=== PATIENT | male | born 1955 | race Caucasian/White ===

== ENCOUNTER 2016-09-26 11:18 | Emergency (ER) | payer BC, OTHER ==
--- OUTSIDE RECORDS SUMMARY | 2016-09-26 12:29 | XMS REPORT | Continuity of Care Document ---
:1955 Author Organization [facility] ([place]) [place] [address] Phone [phone] Care Team Providers Name Role Phone Ana Villavicencio Primary Care Provider [phone] Source Comments This disclosure is being made pursuant to the Care Everywhere program, applicable federal and state laws, and may not contain all informaitonavailable regarding this patient.[facility] ([place]) Active Allergies and Adverse Reactions No Known Allergies Current Medications Prescription Sig. Disp. Refills Start Date End Date Status loperamide 2 mg capsule Take 2 Caps by 120 Cap 11 10/14/2011 Active mouth before meals and at bedtime. Take 2 caps at onset of diarrhea, then 1 cap after each loose stool. Max 8 caps/day. Indications: Diarrhea CIPRO 500 mg Tab tablet Take 1 Tab by mouth 30 Tab 6 06/22/2012 Active daily. Indications: pouchitis metroNIDAZOLE 500 mg Take 1 Tab by mouth 30 Tab 3 06/22/2012 Active tablet at bedtime. Indications: pouchitis Active Problems Problem Noted Date Pouchitis 10/14/2011 Overview: Antibiotic dependent. First and last pouchoscopy by Dr. Corona Immunizations Name Dates Previously Given Next Due Influenza, PF 04/27/2010 Social History Tobacco Use Types Packs/Day Years Used Date Never Smoker Smokeless Tobacco: Never Used Alcohol Use Drinks/Week oz/Week Comments No Last Filed Vital Signs Vital Sign Reading Time Taken Blood Pressure 128/78 02/23/2013 4:01 PM CDT Pulse 65 02/23/2013 1:49 PM CDT Temperature 37 C (98.6 F) 02/23/2013 1:49 PM CDT Respiratory Rate 16 02/23/2013 4:01 PM CDT Height 1.816 m (5' 11.5") 12/21/2012 10:55 AM CDT Weight 92.715 kg (204 lb 6.4 oz) 12/21/2012 10:55 AM CDT Body Mass Index 28.11 12/21/2012 10:55 AM CDT Oxygen Saturation 99% 02/23/2013 4:01 PM CDT Plan of Care Health Maintenance Due Date Last Done Comments HCV Screening 1955 Hepatitis B Vaccine (1 of 3 - Primary Series) 1955 Tdap Vaccine 1967 Lipid Disorder Screening 1974 MMR Vaccine 1974 Td Vaccine 1974 Prostate Cancer Screening 2006 Influenza Vaccine: Seasonal (#1) 02/11/2016 04/27/2010 Colonoscopy 03/11/2020 03/11/2010 Results from Last 3 Months Not on file
--- NOTE | 2016-09-26 12:33 | ERNOTE ---
ENT HPI Date of Service: 09/26/16 Presenting Symptoms: eye pain, other - eyelid injury Time Seen by Provider: 09/26/16 12:12 Source: patient Exam Limitations: no limitations - Immun/Allergies/Home Medications Immunizations: IMMUNIZATION HX Immunizations Up to Date No History of Influenza Vaccine Yes Hx Pneumococcal Vaccination No Allergies/Adverse Reactions: Allergies Allergy/AdvReac Type Severity Reaction Status Date / Time No Known Allergies Allergy Verified 09/26/16 11:47 Home Medications: HOME MEDICATIONS Ciprofloxacin HCl [Cipro] 500 mg PO ONCE 09/26/16 [Last Taken Unknown] - History of Present Illness Narrative: Presents with c/o laceration to his left lower eyelid. Injury occurred when a machine tool slipped and hit him in his left eye. C/o pain to left eye. Denies any blurry vision. ENT Location: Present: eye (L) Prearrival Treatment: Present: no prearrival treatment Associated Symptoms - ENT: Reports: denies symptoms Review of Systems - Review of Systems Constitutional: Present: no symptoms reported EYE: Present: see HPI ENT: Present: no symptoms reported Respiratory: Present: no symptoms reported Cardiology: Present: no symptoms reported Gastrointestinal/Abdominal: Present: no symptoms reported Genitourinary: Present: no symptoms reported Musculoskeletal: Present: no symptoms reported Skin: Present: no symptoms reported Neurological: Present: no symptoms reported Endocrine: Present: no symptoms reported Hematologic/Lymphatic: Present: no symptoms reported Psych: Present: no symptoms reported All Other Systems: All systems neg except as marked - Patient's Past Medical History Patient History - Medical: Arthritis, Other Patient History - Cardiac/Respiratory: No pertinent hx Patient History - Cancer: No Hx of Cancer Patient History - Surgical Procedures: Colon Resection, Colonoscopy Patient History - Other: None - Family History Mother Family History - Medical: No pertinent hx, Arthritis Family History - Cardiac/Respiratory: Hypertension Family History - Cancer: No pertinent family hx Father Family History - Medical: Family History - Cancer: Colon - Social History Living Situations: spouse Abuse History: No History of abuse Psych History: No pertinent hx Smoking Status: Never smoker Alcohol Use: none Drug Use: none - Immunizations Immunizations Up to Date: No Hx Pneumococcal Vaccination: No History of Influenza Vaccine: Yes Physical Exam - Physical Exam General Appearance: Present: wd/wn, alert, no apparent distress Eye Exam: PERRL: bilateral, EOMI: bilateral, Other: left - Left lower eye lid laceration across medial end of tarsal plate and cananiculus Ears, Nose, Throat: Present: normal ENT inspection Neck: Present: normal inspection, nontender Respiratory: Present: no respiratory distress, normal breath sounds, chest nontender, lungs clear Cardiovascular/Chest: Present: regular rate, rhythm, no murmur Neurological Exam: Present: alert, oriented Skin Exam: Present: normal color, warm/dry ED Progress - Vital Signs Patient's Vital Signs:: I have reviewed the patient's vital signs. Vital Signs: Vital Signs 09/26/16 11:39 Temperature 37.2 C Pulse Rate 68 Respiratory 18 Rate Blood Pressure 137/93 O2 Sat by Pulse 98 Oximetry - Progress/Reassessment Chief Complaint: Eye Injury/Trauma Progress:: Unchanged Plan - Plan Plan: Pt seen in ER by in-house Instructional Paraprofessional, Dr. Domingo; recommends transfer to [place], [place] for more specialized care. Transfer accepted by Dr. Perez, ER department, [facility]. Pt will transfer POV. Departure Clinical Impression: Laceration of eyelid involving lacrimal passages Qualifiers: Encounter type: initial encounter Laterality: left Qualified Code(s): S01.112A - Laceration without foreign body of left eyelid and periocular area, initial encounter - Departure Disposition: [facility] Condition: Good Referrals: Ana Villavicencio MD [Primary Care Provider] -
[2016-09-26 13:19] VITALS: BP 133/73
== END 2016-09-26 13:20 | disposition short-term general hospital (02) ==
LOC: ER 11:18
DX: S01.112A Laceration without foreign body of left eyelid and periocular area, initial encounter (principal); W20.8XXA Other cause of strike by thrown, projected or falling object, initial encounter; Y92.69 Other specified industrial and construction area as the place of occurrence of the external cause; Y99.0 Civilian activity done for income or pay

== ENCOUNTER 2017-06-15 07:47 | Inpatient (IN) | payer BC, OTHER ==
--- NOTE | 2017-06-15 08:35 | ERNOTE ---
Abdominal HPI - General Chief Complaint: Abdominal Pain Time Seen by Provider: 06/15/17 08:24 Source: patient Exam Limitations: no limitations - Immun/Allergies/Home Medications Immunizatons: IMMUNIZATION HX Immunizations Up to Date Yes History of Influenza Vaccine Yes Hx Pneumococcal Vaccination No Allergies/Adverse Reactions: Allergies No Known Allergies Allergy (Verified 06/15/17 08:01) Home Medications: HOME MEDICATIONS Ciprofloxacin HCl [Cipro] 500 mg PO DAILY PRN 09/26/16 [Last Taken Unknown] metroNIDAZOLE [Flagyl] 500 mg PO DAILY PRN 06/15/17 [Last Taken Unknown] - History of Present Illness Narrative: Patient has a history of ulcerative colitis, had a total colectomy about five years ago. He has chronic diarrhea but has not had any other problems for at lease two years. two days ago he started to have intermittent abdominal pain and worsened diarrhea, pain mainly with activity and being upright Date (Duration): 06/13/17 Timing: intermittent Quality: moderate Activities at Onset: activity Modifying Factors - (Improves): Present: rest, lying down Modifying Factors - (Worsens): Present: movement Associated Symptoms: Absent: headache, back pain, chest pain, neck pain, diaphoresis, diarrhea-gross blood, fever/chills, heartburn, nausea, shortness of breath Prior Abdominal Problems: Present: similar symptoms - prior to surgery Prior Treatment: Absent: recently seen, currently on antibiotics Review of Systems - Review of Systems Constitutional: Absent: recent illness, fever ENT: Absent: nose congestion, sore throat Respiratory: Absent: shortness of breath Cardiology: Absent: chest pain Gastrointestinal/Abdominal: Present: See HPI Genitourinary: Present: no symptoms reported Musculoskeletal: Present: no symptoms reported Skin: Present: no symptoms reported Neurological: Present: no symptoms reported - Patient's Past Medical History Patient History - Medical: Arthritis, Other - ulcerative colitis Patient History - Cardiac/Respiratory: No pertinent hx Patient History - Cancer: No Hx of Cancer Patient History - Surgical Procedures: Colon Resection, Colonoscopy Patient History - Other: None - Family History Mother Family History - Medical: No pertinent hx, Arthritis Family History - Cardiac/Respiratory: Hypertension Family History - Cancer: No pertinent family hx Father Family History - Medical: Family History - Cancer: Colon - Social History Living Situations: home Abuse History: No History of abuse Psych History: No pertinent hx Smoking Status: Never smoker Alcohol Use: none Drug Use: none - Immunizations Immunizations Up to Date: Yes Hx Pneumococcal Vaccination: No History of Influenza Vaccine: Yes Physical Exam - Physical Exam General Appearance: Present: wd/wn, alert, severe distress Respiratory: Present: no respiratory distress, normal breath sounds, no accessory muscle use, lungs clear Cardiovascular/Chest: Present: regular rate, rhythm, no murmur Gastrointestinal/Abdominal: Present: nondistended, soft, tenderness - lower abdomen bilateral, other - decreased bowel sonds. Absent: guarding, rebound Extremity Exam: Present: no edema Neurological Exam: Present: alert, oriented, normal mood/affect Skin Exam: Present: normal color, warm/dry ED Progress - Results and Orders Patient's Lab Results:: I have reviewed the patient's lab results. - Vital Signs Patient's Vital Signs:: I have reviewed the patient's vital signs. Vital Signs: Vital Signs 06/15/17 07:54 Temperature 36.4 C L Pulse Rate 82 Respiratory 16 Rate Blood Pressure 111/70 O2 Sat by Pulse 99 Oximetry - X-Ray X-Ray #1 X-Ray: abdomen - abnormal, but non specific bowel gas pattern Interpretation: Reviewed by me - CT/Ultrasound CT/Ultrasound Narrative: CT abdomen/pelvis: possible pouchitis and partial small bowel obstruction (see report) - Progress/Reassessment Chief Complaint: Abdominal Pain Progress Note-Subjective: 06/15/17 09:19 discussed results with patient and need for CT for more detailed information patient denies need for pain meds 06/15/17 10:10 tolerating po contrast, denies any pain 06/15/17 12:[address] Nesbitt, unable to review CT at this time but doesn't see contraindication for admission here 06/15/17 12:[address] Fuentes,okay to admit, start cipro and flagyl Departure Clinical Impression: Pouchitis - Departure Disposition: [facility] Condition: Stable Referrals: Ana Villavicencio MD [Primary Care Provider] -
[2017-06-15 08:45] LABS: Hematocrit 49.6 % (42.0-52.0); Hemoglobin 16.9 gm/dL (13.5-18.0); Mean Corpuscular Hemoglobin 30.3 pg (27-31); Mean Corpuscular Hgb Conc 34.1 g/dl (32-36); Mean Platelet Volume 9.3 fl (6.0-9.5); Neutrophil # 8.8 K/mm3 (1.3-6.0); Neutrophil % 77.5 % (42-75.0); Platelet Count 284 K/mm3 (150-450); Red Blood Count 5.57 M/mm3 (4.7-6.0); Red Cell Distribution Width 13.2 % (11.5-14.0); White Blood Count 11.4 K/mm3 (4.0-10.5)
[2017-06-15 08:57] LABS: Albumin * 4.1 gm/dl (3.4-5.0); BUN/Creatinine Ratio 13.4 (9.0-21.6); Bilirubin, Total 0.8 mg/dL (0.0-1.1); Ca. Corrected For Albumin 8.7 mg/dL (8.4-10.2); Calcium * 9.1 mg/dL (7.9-10.9); Total Protein 8.3 gm/dL (6.2-8.2)
[2017-06-15 09:00] LABS: Anion Gap 12.3 mmol/L (6.8-13.8); Carbon Dioxide 27.7 mmol/L (24-32.6)
[2017-06-15 09:13] LABS: Urine Bilirubin 1 mg/dl (NEGATIVE); Urine Blood 25 /ul (NEGATIVE); Urine Ketone 5 mg/dL (NEGATIVE); Urine Nitrite Negative (NEGATIVE); Urine Protein 30 mg/dL (NEGATIVE); Urine Specific Gravity >=1.030 SP.GR. (1.005-1.030); Urine Urobilinogen Normal (NORMAL)
[2017-06-15] MEDS ORDERED: DIATRIZOATE MEGLUMINE, SODIUM 30 ML BTL PO ONE (09:19)
[2017-06-15 09:20] LABS: Urine Appearance Slightly Cloudy; Urine Bacteria TRACE; Urine Color Dark Yellow; Urine WBC None Seen /hpf (0-5)
[2017-06-15] MEDS ORDERED: DIATRIZOATE MEGLUMINE, SODIUM 30 ML BTL ONE (09:26)
[2017-06-15 10:12] LABS: White Blood Count Few
[2017-06-15 10:13] LABS: Bacteria Few; Band 1 % (0-2); Eosinophil 1 % (0-3); Lymphocyte 5 % (20-51); Monocyte 8 % (2-9); Neutrophil 85 % (42-75); Yeast Few
[2017-06-15] MEDS ORDERED: ACETAMINOPHEN 500 MG TABLET PO PRN (13:12)
[2017-06-15] MEDS ORDERED: PROMETHAZINE HCL 5 MG in DEXTROSE 5 % IN WATER 50 ML IV PRN ×2 (13:12)
[2017-06-15] MEDS ORDERED: HYDROmorphone HCL 2 MG TABLET PO PRN (13:12)
[2017-06-15] MEDS ORDERED: HYDROcodone/ACETAMINOPHEN 1 EACH TABLET PO PRN (13:12)
[2017-06-15] MEDS ORDERED: FLU VACC QS2017-18(6MOS UP)/PF 60 MCG/0.5 ML SYRINGE IM ONE (13:46)
[2017-06-15] MEDS: metroNIDAZOLE/SODIUM CHLORIDE 500 MG/100 ML BAG IV SCH ×2 (14:12→20:20)
[2017-06-15] MEDS: CIPROFLOXACIN IN 5 % DEXTROSE 400 MG/200 ML BAG IV SCH (14:12)
--- NOTE | 2017-06-15 15:05 | HP ---
Chief Complaint - Chief Complaint Date of Service: 06/15/17 Time of Service: 15:02 Chief Complaint: abdominal pain History of Present Illness: Clifford Sauer, is a 61 white male, patient of Dr. Villavicencio, with previous medical history of ulcerative colitis, Pouchitis, osteoarthritis who was admitted on 06/15/2017 because of abdominal pain. 2 days prior to admission the patient started having diarrhea, large volume associated with abdominal pain , mostly right lower quadrant, colicky, 5-8/10, waxing and waning not associated with fever/ chills/ nausea/vomiting. The patient says that he has chronic diarrhea, but of small volume, ever since he had his colectomy for ulcerative colitis. In 2014 he did have a history of pouchitis treated conservatively with IV antibiotics. His CTS showed that he has again pouchitis and he had a positive stool for occult blood. . He is then admitted for further management. - Patient's Past Medical History Patient History - Medical: Arthritis, Other - ulcerative colitis, Pouchitis Patient History - Cardiac/Respiratory: No pertinent hx Patient History - Cancer: No Hx of Cancer Patient History - Surgical Procedures: Colon Resection, Colonoscopy Patient History - Other: None - Family History Mother Family History - Medical: No pertinent hx, Arthritis Family History - Cardiac/Respiratory: Hypertension Family History - Cancer: No pertinent family hx Father Family History - Medical: Family History - Cardiac/Respiratory: History Unknown Family History - Cancer: Colon - Social History Living Situations: home Abuse History: No History of abuse Psych History: No pertinent hx Smoking Status: Never smoker Have you smoked in the past 12 months: No Do you dip or chew tobacco: No Patient requests Smoking Cessation Consult: No Initiate information on Smoking Cessation: No Alcohol Use: none Drug Use: none - Immunizations Immunizations Up to Date: Yes Hx Pneumococcal Vaccination: No History of Influenza Vaccine: Yes Review Of Systems (GEN) - Review of Systems Generalized/Overall Review: Absent: Chills, Fever Respiratory: Absent: Cough, Shortness of Breath, Orthopnea Cardiac: Absent: Chest Pain, Edema, Palpitations Abdominal: Present: Abdominal Pain, Diarrhea. Absent: Nausea, Vomiting Genitourinary: Absent: Urgency, Frequency Immunizations: IMMUNIZATION HX Immunizations Up to Date Yes History of Influenza Vaccine Yes Hx Pneumococcal Vaccination No Allergies/Adverse Reactions: Allergies Allergy/AdvReac Type Severity Reaction Status Date / Time No Known Allergies Allergy Verified 06/15/17 13:28 Home Medications: HOME MEDICATIONS Ciprofloxacin HCl [Cipro] 500 mg PO DAILY PRN 09/26/16 [Last Taken 06/14/17 09: 00] metroNIDAZOLE [Flagyl] 500 mg PO DAILY PRN 06/15/17 [Last Taken 06/14/17 09:00] Exam - Exam Vital Signs: Vital Signs - Last Taken Temp 36.6 C 06/15/17 13:13 Pulse 84 06/15/17 13:13 Resp 16 06/15/17 13:13 BP 120/80 06/15/17 13:13 Pulse Ox 96 06/15/17 13:13 Constitutional: Present: Alert, Oriented x3, Cooperative ENT Exam: Present: hearing grossly normal Eye Exam: bilateral eye: normal inspection, PERRL, EOMI Neck: Present: supple Back Exam: Present: no CVA tenderness Respiratory: Present: normal breath sounds, No rales, No wheezing Cardiovascular/Chest: Present: regular rate, rhythm, no JVD, no murmur Abdomen: Present: nondistended, tender, firm, hypoactive Extremity: Present: no pedal edema, no calf tenderness Diagnostic Studies: Laboratory Results WBC 11.4 K/mm3 (4.0-10.5) H 06/15/17 08:39 RBC 5.57 M/mm3 (4.7-6.0) 06/15/17 08:39 Hgb 16.9 gm/dL (13.5-18.0) 06/15/17 08:39 Hct 49.6 % (42.0-52.0) 06/15/17 08:39 MCV 89.0 fl (78-100) 06/15/17 08:39 MCH 30.3 pg (27-31) 06/15/17 08:39 MCHC 34.1 g/dl (32-36) 06/15/17 08:39 RDW 13.2 % (11.5-14.0) 06/15/17 08:39 Plt Count 284 K/mm3 (150-450) 06/15/17 08:39 MPV 9.3 fl (6.0-9.5) 06/15/17 08:39 Immature Gran % (Auto) 0.40 % (0.001-0.429) 06/15/17 08:39 Immature Gran # (Auto) 0.04 K/mm3 (0.000-0.0310) H 06/15/17 08:39 Neutrophils % 77.5 % (42-75.0) H 06/15/17 08:39 Lymphocytes % 11.0 % (20-51) L 06/15/17 08:39 Monocytes % 8.1 % (0.0-9) 06/15/17 08:39 Eosinophils % 2.6 % (0.0-3.0) 06/15/17 08:39 Basophils % 0.4 % (0.0-1.0) 06/15/17 08:39 Nucleated RBC % 0.0 k/mm3 (0-1) 06/15/17 08:39 Neutrophils # 8.8 K/mm3 (1.3-6.0) H 06/15/17 08:39 Lymphocytes # 1.3 k/mm3 (1.5-3.5) L 06/15/17 08:39 Monocytes # 0.9 k/mm3 (0.0-1.0) 06/15/17 08:39 Eosinophils # 0.3 k/mm3 (0.0-0.7) 06/15/17 08:39 Absolute Basophils 0.0 k/mm3 (0.0-0.1) 06/15/17 08:39 Sodium 139 mmol/L (132-142) 06/15/17 08:39 Plasma Sodium 139 mmol/L (130-142) 06/15/17 08:39 Potassium 4.0 mmol/L (3.4-4.6) 06/15/17 08:39 Chloride 103 mmol/L (97-106) 06/15/17 08:39 Carbon Dioxide 27.7 mmol/L (24-32.6) 06/15/17 08:39 Anion Gap 12.3 mmol/L (6.8-13.8) 06/15/17 08:39 BUN 19 mg/dL (6-23) 06/15/17 08:39 Creatinine 1.42 mg/dL (0.4-1.4) H 06/15/17 08:39 Est GFR (Non-Af Amer) 54 mL/min (60-130) L 06/15/17 08:39 BUN/Creatinine Ratio 13.4 (9.0-21.6) 06/15/17 08:39 Random Glucose 107 mg/dL (70-110) 06/15/17 08:39 Calcium 9.1 mg/dL (7.9-10.9) 06/15/17 08:39 Calcium Adj for Albumin 8.7 mg/dL (8.4-10.2) 06/15/17 08:39 Total Bilirubin 0.8 mg/dL (0.0-1.1) 06/15/17 08:39 AST 14 U/L (0-48) 06/15/17 08:39 ALT 17 U/L (19-67) L 06/15/17 08:39 Alkaline Phosphatase 125 U/L (50-170) 06/15/17 08:39 Total Protein 8.3 gm/dL (6.2-8.2) H 06/15/17 08:39 Albumin 4.1 gm/dl (3.4-5.0) 06/15/17 08:39 Amylase 56 U/L (25-115) 06/15/17 08:39 Lipase 113 U/L (73-393) 06/15/17 08:39 Urine Color Dark yellow 06/15/17 09:07 Urine Appearance Slightly cloudy 06/15/17 09:07 Urine pH 6.0 pH (5.0-7.0) 06/15/17 09:07 Ur Specific [place] >=1.030 SP.GR. (1.005-1.030) 06/15/17 09:07 Urine Protein 30 mg/dL (NEGATIVE) H 06/15/17 09:07 Urine Glucose (UA) Negative mg/dL (NEGATIVE) 06/15/17 09:07 Urine Ketones 5 mg/dL (NEGATIVE) 06/15/17 09:07 Urine Blood 25 /ul (NEGATIVE) H 06/15/17 09:07 Urine Nitrate Negative (NEGATIVE) 06/15/17 09:07 Urine Bilirubin 1 mg/dl (NEGATIVE) H 06/15/17 09:07 Urine Ictotest Negative (NEGATIVE) 06/15/17 09:07 Prot Sulfosalicylic Acd Negative mg/dL (0) 06/15/17 09:07 Urine Urobilinogen Normal EU/dl (NORMAL) 06/15/17 09:07 Ur Leukocyte Esterase Negative /ul (NEGATIVE) 06/15/17 09:07 Urine RBC 5-10 /hpf (0-5) H 06/15/17 09:07 Urine WBC None seen /hpf (0-5) 06/15/17 09:07 Ur Epithelial Cells None seen /hpf (0-5) 06/15/17 09:07 Urine Bacteria Trace (NONE) 06/15/17 09:07 Urine Culture Comments No culture indicated 06/15/17 09:07 Fluid Lymphocytes 5 % (20-51) L 06/15/17 08:45 Stool Occult Blood Positive H 06/15/17 08:45 Stool White Cell Res 1 1 % (0-2) 06/15/17 08:45 Stool White Cell Res 4 Few 06/15/17 08:45 Stool Neutrophil # 85 % (42-75) H 06/15/17 08:45 Stool Leukocytes, Qual Few H 06/15/17 08:45 Stool Monocyte # 8 % (2-9) 06/15/17 08:45 Stool Eosinophil # 1 % (0-3) 06/15/17 08:45 Yeast (Wet Prep) Few 06/15/17 08:45 Assessment/Plan - Assessment/Plan (1) Pouchitis Assessment: continue with NPO, IV Cipro/flagyl. Consider Probiotic. surgical consult with Dr. Nesbitt. Problem: Acute (2) Dehydration Assessment: continue with IVF Problem: Acute (3) Ulcerative colitis Assessment: s/p colectomy Problem: Chronic Qualifiers: Ulcerative colitis location: ulcerative pancolitis
[2017-06-15] MEDS: DEXTROSE 5%-0.5 NORMAL SALINE 1,000 ML IV PRN (17:17)
[2017-06-15] MEDS: LACTOBACILLUS ACIDOPHILUS 100 CAP BTL PO SCH ×2 (17:18→20:22)
[2017-06-16] MEDS: CIPROFLOXACIN IN 5 % DEXTROSE 400 MG/200 ML BAG IV SCH ×2 (01:53→13:01)
[2017-06-16] MEDS: metroNIDAZOLE/SODIUM CHLORIDE 500 MG/100 ML BAG IV SCH ×3 (04:52→20:40)
[2017-06-16] MEDS: DEXTROSE 5%-0.5 NORMAL SALINE 1,000 ML IV PRN ×2 (06:46→18:46)
[2017-06-16] MEDS: LACTOBACILLUS ACIDOPHILUS 100 CAP BTL PO SCH ×2 (08:14→20:40)
--- NOTE | 2017-06-16 08:33 | PN ---
Subjective - Date and Time Seen Date: 06/16/17 Time: 08:28 Subjective Narrative: He says he is hungry. Still with large diarrhea and abdominal pain . Objective - Review of Systems Generalized/Overall Review: Denies: Weakness, Chills, Fever Respiratory: Denies: Cough, Shortness of Breath Cardiac: Denies: Chest Pain, Edema, Palpitations Abdominal: Denies: Nausea, Vomiting Genitourinary Symptoms: Denies: Urgency, Frequency - Vitals Vitals: Last Vital Signs Temp 36.4 C L 06/16/17 08:04 Pulse 65 06/16/17 08:04 Resp 14 06/16/17 08:04 BP 124/76 06/16/17 08:04 Pulse Ox 98 06/16/17 08:04 - Abnormal Lab Findings Abnormal Lab Findings: Abnormal Lab Results 06/15/17 06/15/17 Range/Units 15:45 15:45 ESR 19 H (0-10) mm/hr C-Reactive Prot, Quant 3.2 H (0.0-0.9) mg/dL - Exam Constitutional: Present: Alert, Oriented x3, Cooperative ENT Exam: Present: hearing grossly normal Neck: Present: supple Cardiovascular/Chest: Present: regular rate, rhythm, no JVD, no murmur Abdomen: Present: nondistended, tender, hypoactive Extremity: Present: no pedal edema, no calf tenderness Assessment/Plan - Problems/Diagnosis (1) Pouchitis Problem: Acute Narrative: will get consult from Dr. Nesbitt. Will continue with IV antibiotics. Will likely start clear liquids if OK with Dr. Nesbitt. (2) Dehydration Problem: Acute Narrative: continue IVF. (3) Ulcerative colitis Problem: Chronic Qualifiers: Ulcerative colitis location: ulcerative pancolitis
[2017-06-16] MEDS: ENOXAPARIN SODIUM 40 MG/0.4 ML SYRG SC SCH (13:01)
[2017-06-16] MEDS: ONDANSETRON HCL/PF 2 MG/ML VIAL IV PRN (19:29)
--- NOTE | 2017-06-16 20:31 | CONS ---
- Reason for consultation (1) Pouchitis Date of Service: 06/16/17 HPI - General Date of Service: 06/16/17 Source: patient, family, RN/MD, RN notes reviewed, old records Exam Limitations: no limitations - History of Present Illness Timing/Duration: other - abrupt onset mid day 06/13/17 Modifying Factors - (Worsens): Reports: movement Modifying Factors - (Improves): Reports: immobilization Associated Symptoms: other - diarrhea, then nausea NO fever/chills Allergies/Adverse Reactions: Allergies No Known Allergies Allergy (Verified 06/15/17 13:28) Home Medications: Home Medications Medication Instructions Recorded Last Taken Ciprofloxacin HCl [Cipro] 500 mg PO DAILY PRN 09/26/16 06/14/17 09:00 metroNIDAZOLE [Flagyl] 500 mg PO DAILY PRN 06/15/17 06/14/17 09:00 - Patient's Past Medical History Patient History - Medical: Arthritis, Other - ulcerative colitis, Pouchitis Patient History - Cardiac/Respiratory: No pertinent hx Patient History - Cancer: No Hx of Cancer Patient History - Surgical Procedures: Colon Resection - total abdominal colectomy with creation of ileal pouch and pouch/rectal anastamosis, Colonoscopy Patient History - Other: None - Family History Mother Family History - Medical: No pertinent hx, Arthritis Family History - Cardiac/Respiratory: Hypertension Family History - Cancer: No pertinent family hx Father Family History - Medical: Family History - Cardiac/Respiratory: History Unknown Family History - Cancer: Colon - Social History Living Situations: home Abuse History: No History of abuse Psych History: No pertinent hx Smoking Status: Never smoker Have you smoked in the past 12 months: No Do you dip or chew tobacco: No Patient requests Smoking Cessation Consult: No Initiate information on Smoking Cessation: No Alcohol Use: none Drug Use: none - Immunizations Immunizations Up to Date: Yes Hx Pneumococcal Vaccination: No History of Influenza Vaccine: Yes Procedures CLOSED ENDOSCOPIC BIOPSY OF LARGE INTESTINE (12/27/08) Medications - Medications Current Medications: Current Medications Enoxaparin Sodium (Lovenox) 40 mg SC Q24H SARATH Stop: 07/16/17 12:46 Last Admin: 06/16/17 13:01 Dose: 40 mg Ciprofloxacin/Dextrose (Cipro) 400 mg in 200 mls @ 200 mls/hr IV Q12H SARATH PRN Reason: Protocol Stop: 07/15/17 13:16 Last Admin: 06/16/17 13:01 Dose: 200 mls/hr Metronidazole (Flagyl) 500 mg in 100 mls @ 100 mls/hr IV Q8H SARATH PRN Reason: Protocol Stop: 07/15/17 13:16 Last Admin: 06/16/17 14:17 Dose: 100 mls/hr Promethazine HCl 5 mg/ (Dextrose/Water) 50.2 mls @ 200 mls/hr IV Q4H PRN PRN Reason: Nausea Stop: 07/15/17 13:13 Last Admin: 06/15/17 15:47 Dose: 200 mls/hr Dextrose/Sodium Chloride (Dextrose 5%-0.45%Ns) 1,000 mls @ 100 mls/hr IV .Q10H PRN PRN Reason: HYDRATION Stop: 07/15/17 15:38 Last Admin: 06/16/17 18:46 Dose: 100 mls/hr Lactobacillus Acidophilus (Bacid) 1 cap PO BID SARATH Stop: 07/15/17 15:31 Last Admin: 06/16/17 08:14 Dose: 1 cap Ondansetron HCl (Zofran) 4 mg IV Q6H PRN PRN Reason: Nausea And Vomiting Stop: 07/16/17 19:08 Last Admin: 06/16/17 19:29 Dose: 4 mg Review of Systems - Review of Systems Generalized/Overall Review: Present: Malaise. Absent: Chills, Fever, Weight loss EENTM: Present: No Symptoms Reported Respiratory: Present: No Symptoms Reported Cardiac: Present: No Symptoms Reported Abdominal: Present: Other - crampy migratory pain, distention, diarrhea. Absent : Bright blood from rectum Genitourinary: Present: No Symptoms Reported Musculoskeletal: Present: No Symptoms Reported Neurological: Present: No Symptoms Reported Skin: Present: No Symptoms Reported Physical Examination - Exam Vital Signs: Vital Signs - Last Taken Temp 36.4 C L 06/16/17 19:00 Pulse 73 06/16/17 19:00 Resp 18 06/16/17 19:00 BP 144/97 06/16/17 19:00 Pulse Ox 100 06/16/17 19:00 O2 Oxygen Delivery Method Room Air Constitutional: Present: Alert, Oriented x3, Cooperative, Well developed, Well nourished, No distress ENT Exam: Present: normal ENT inspection Eye Exam: bilateral eye: normal inspection Neck: Present: full range of motion, normal inspection Abdomen: Present: other - Slightly proturberant, tympanitic, soft, no percussion or rebound tenderness, no guarding /Rectal: Present: Other - exam will be done with endoscopy Extremity: Present: normal range of motion, normal inspection, no pedal edema Skin Exam: Present: normal color 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 Currently C Diff was negative. Last endoscopic exam was 2012 with no formal GI f/u since then. Does not appear to have SBO on CT, could assess pouch problems with endoscopy RECOMMEND: Add Zofran for nausea and continue clear liquids until 6AM. GI endoscopy to biosy pouch tomorrow. Stool cultures for pathogens. Will discuss with Dr Fuentes, and may wish to re- establish with [facility] for ongoing f/u and management suggestions. Problem: Acute
[2017-06-17] MEDS: CIPROFLOXACIN IN 5 % DEXTROSE 400 MG/200 ML BAG IV SCH ×2 (00:31→14:33)
[2017-06-17] MEDS: metroNIDAZOLE/SODIUM CHLORIDE 500 MG/100 ML BAG IV SCH ×3 (04:45→23:36)
[2017-06-17] MEDS: DEXTROSE 5%-0.5 NORMAL SALINE 1,000 ML IV PRN (07:17)
[2017-06-17 07:21] LABS: Hematocrit 45.6 % (42.0-52.0); Hemoglobin 15.6 gm/dL (13.5-18.0); Mean Cell Volume 88.4 fl (78-100); Mean Corpuscular Hemoglobin 30.2 pg (27-31); Mean Corpuscular Hgb Conc 34.2 g/dl (32-36); Mean Platelet Volume 9.3 fl (6.0-9.5); Neutrophil # 6.2 K/mm3 (1.3-6.0); Neutrophil % 72.2 % (42-75.0); Platelet Count 240 K/mm3 (150-450); Red Blood Count 5.16 M/mm3 (4.7-6.0); Red Cell Distribution Width 12.9 % (11.5-14.0); White Blood Count 8.5 K/mm3 (4.0-10.5)
[2017-06-17 07:30] LABS: Anion Gap 10.6 mmol/L (6.8-13.8); BUN/Creatinine Ratio 12.2 (9.0-21.6); Calcium * 8.6 mg/dL (7.9-10.9); Carbon Dioxide 27.5 mmol/L (24-32.6); Estimated Creat Clear 63.9; Potassium 4.1 mmol/L (3.4-4.6)
--- NOTE | 2017-06-17 08:11 | PN ---
Subjective - Date and Time Seen Date: 06/17/17 Time: 08:08 Subjective Narrative: Patient says that clinically he is feeling better- less diarrhea, less abdominal pain. Objective - Review of Systems Generalized/Overall Review: Denies: Chills, Fever Respiratory: Denies: Cough, Shortness of Breath Cardiac: Denies: Chest Pain, Palpitations Abdominal: Reports: Abdominal Pain, Diarrhea. Denies: Nausea, Vomiting Genitourinary Symptoms: Denies: Urgency, Frequency - Vitals Vitals: Last Vital Signs Temp 36.4 C L 06/17/17 07:00 Pulse 64 06/17/17 07:00 Resp 16 06/17/17 07:00 BP 134/83 06/17/17 07:00 Pulse Ox 94 06/17/17 07:00 - Abnormal Lab Findings Abnormal Lab Findings: Abnormal Lab Results 06/17/17 06/17/17 Range/Units 07:15 07:15 Lymphocytes % 16.3 L (20-51) % Neutrophils # 6.2 H (1.3-6.0) K/mm3 Lymphocytes # 1.4 L (1.5-3.5) k/mm3 Est GFR (Non-Af Amer) 59 L (60-130) mL/min Random Glucose 121 H (70-110) mg/dL - Exam Constitutional: Present: Alert, Oriented x3, Cooperative ENT Exam: Present: hearing grossly normal Neck: Present: supple Respiratory: Present: normal breath sounds, No rales, No wheezing Cardiovascular/Chest: Present: regular rate, rhythm, no JVD, no murmur Abdomen: Present: tender, firm, hypoactive Extremity: Present: no pedal edema, no calf tenderness Assessment/Plan - Problems/Diagnosis (1) Pouchitis Problem: Acute Narrative: for endoscopy today with Dr. Nesbitt. continue with IV anrtibiotics. (2) Dehydration Problem: Resolved (3) Ulcerative colitis Problem: Chronic Qualifiers: Ulcerative colitis location: ulcerative pancolitis Narrative: s/p colectomy
[2017-06-17] MEDS ORDERED: DEXTROSE 5%-0.5 NORMAL SALINE 1,000 ML IV ONE (10:30)
[2017-06-17] MEDS ORDERED: RINGER'S SOLUTION,LACTATED 1,000 ML IV PRN (11:14)
[2017-06-17] MEDS: LACTOBACILLUS ACIDOPHILUS 100 CAP BTL PO SCH ×2 (11:29→23:36)
[2017-06-17] MEDS: ENOXAPARIN SODIUM 40 MG/0.4 ML SYRG SC SCH (13:02)
--- NOTE | 2017-06-17 14:50 | OR ---
Operative Report - Dictated Report Narrative: OPERATIVE REPORT DATE OF OPERATION: 06/17/2017 PREOPERATIVE DIAGNOSIS: Pouchitis POSTOPERATIVE DIAGNOSIS: Pouchitis (pathology pending) OPERATION: Endoscopic exam of distal ileal rectal J pouch SURGEON: Ree Nesbitt MD ANESTHESIA: DILMA Earl CRNA INDICATIONS FOR PROCEDURE: The patient is a 61-year-old male who has had a total abdominal colectomy with creation of a J-pouch for ulcerative colitis. He was admitted with abdominal pain and diarrhea with presumptive diagnosis of pouchitis. FINDINGS: Findings compatible with pouchitis. No mechanical obstruction observed to 50 cm with normal small intestine proximal to the pouch NARRATIVE OF PROCEDURE: The patient was identified preoperatively and prior to the administration of anesthetic a multidisciplinary timeout was observed. With the patient in the left lateral position and after the administration of mild intravenous sedation the perineum was inspected. There was no evidence of pilonidal disease or skin breakdown. The external appearance of the anus was normal. Sphincter tone was good. The flexible fiberoptic colonoscope was inserted through the anal canal into the J pouch. There was marked inflammation and friability noted. The scope was then withdrawn and readvanced through the anal canal and photographs obtained. A biopsy of the immediate transition zone was obtained. The scope was then advanced into the pouch. The owl eyes anatomy was observed. The overall anatomy of the pouch was inspected and appeared normal but with inflamed mucosa. The pouch was then biopsied. The sites were seen to be hemostatic. The scope was then advanced into the small bowel for a length of 50 cm. There was no evidence of angulation or obstruction and the villous architecture of the small bowel appeared normal. The scope was then withdrawn into the pouch with confirmation of previous findings. The pouch was empty of insufflated air. The scope was then withdrawn from the patient and the procedure terminated. The patient tolerated the anesthetic and procedure well without complication. He was transferred back to the floor awake and in stable condition. Reviewed and electronically signed
[2017-06-18] MEDS: ONDANSETRON HCL/PF 2 MG/ML VIAL IV PRN (02:19)
[2017-06-18] MEDS: CIPROFLOXACIN IN 5 % DEXTROSE 400 MG/200 ML BAG IV SCH ×2 (02:25→15:00)
[2017-06-18] MEDS: metroNIDAZOLE/SODIUM CHLORIDE 500 MG/100 ML BAG IV SCH ×3 (06:44→20:35)
--- NOTE | 2017-06-18 08:36 | PN ---
Subjective - Date and Time Seen Date: 06/18/17 Time: 08:34 Subjective Narrative: Patient is feeling better. He feels his diarrhea is getting back to his baseline. Objective - Review of Systems Generalized/Overall Review: Denies: Weakness, Chills, Fever Respiratory: Denies: Cough, Shortness of Breath Cardiac: Denies: Chest Pain, Palpitations Abdominal: Reports: Abdominal Pain - improved. Denies: Nausea, Vomiting Genitourinary Symptoms: Denies: Urgency, Frequency Musculoskeletal Complaints: Denies: Joint Pain - Vitals Vitals: Last Vital Signs Temp 36.4 C L 06/18/17 07:17 Pulse 64 06/18/17 07:17 Resp 18 06/18/17 07:17 BP 145/93 06/18/17 07:17 Pulse Ox 97 06/18/17 07:17 Assessment/Plan - Problems/Diagnosis (1) Pouchitis Problem: Acute Narrative: WBC is back to normal. will advance diet. continue with IV antibiotics today. possible discharge tomorrow. (2) Ulcerative colitis Problem: Chronic Qualifiers: Ulcerative colitis location: ulcerative pancolitis Narrative: s/p colectomy
[2017-06-18] MEDS: LACTOBACILLUS ACIDOPHILUS 100 CAP BTL PO SCH ×2 (09:19→20:35)
[2017-06-18] MEDS: ENOXAPARIN SODIUM 40 MG/0.4 ML SYRG SC SCH (15:00)
[2017-06-19] MEDS: CIPROFLOXACIN IN 5 % DEXTROSE 400 MG/200 ML BAG IV SCH (00:56)
[2017-06-19] MEDS: ONDANSETRON HCL/PF 2 MG/ML VIAL IV PRN (02:04)
[2017-06-19] MEDS: metroNIDAZOLE/SODIUM CHLORIDE 500 MG/100 ML BAG IV SCH (05:09)
[2017-06-19 06:26] VITALS: BP 130/96
--- NOTE | 2017-06-19 08:16 | DS ---
(1) Pouchitis Problem: Acute (2) Ulcerative colitis Problem: Chronic Qualifiers: Ulcerative colitis location: ulcerative pancolitis Description of Stay: Clifford Sauer, is a 61 white male, patient of Dr. Villavicencio, with previous medical history of ulcerative colitis, Pouchitis, osteoarthritis who was admitted on 06/15/2017 because of abdominal pain. 2 days prior to admission the patient started having diarrhea, large volume associated with abdominal pain , mostly right lower quadrant, colicky, 5-8/10, waxing and waning not associated with fever/ chills/ nausea/vomiting. The patient says that he has chronic diarrhea, but of small volume, ever since he had his colectomy for ulcerative colitis. In 2014 he did have a history of pouchitis treated conservatively with IV antibiotics. His CTS showed that he has again pouchitis and he had a positive stool for occult blood. . He was then admitted and started on IV antibiotics. He underwent an endoscopy and biopsy with Dr. Nesbitt. His pathology report showed severe inflammation but no dysplasia. His diarrhea and abdominal pain resolved. Will discahrge him on Cipro 400 mg PO BID x 10 more days, Flagyl 500 mg PO QD x 10 days and then back to his usual Cipro 500 mg PO QD PRN and Flagyl 500 mg PO QD PRN. . Follow up with his PCP-Dr. Villavicencio. Procedures Performed: none Discharge Disposition: Home self care Disposition: Home self-care Condition: Stable Discharge Activity: Activity as tolerated Discharge Diet: Resume usual diet - bland Referrals: Ana Villavicencio MD [Primary Care Provider] - Problem Oriented Discharge Instructions to Patient/Family: Ulcerative Colitis, Adult Additional Patient Instructions (free text): Follow up with Dr. Villavicencio on 06/26/17 at 10:30am. Prescriptions (Any new or edited meds): Acetaminophen [Tylenol] 650 mg PO QID PRN #30 tablet PRN Reason: Pain/Fever Ciprofloxacin HCl [Cipro] 400 mg PO BID #20 tablet metroNIDAZOLE [Flagyl] 500 mg PO DAILY #10 tablet Complete Home Medications List: Complete Home Medication List: Acetaminophen [Tylenol] 650 mg PO QID PRN #30 tablet 06/19/17 Ciprofloxacin HCl [Cipro] 400 mg PO BID #20 tablet 06/19/17 metroNIDAZOLE [Flagyl] 500 mg PO DAILY #10 tablet 06/19/17
[2017-06-19] MEDS: LACTOBACILLUS ACIDOPHILUS 100 CAP BTL PO SCH (08:30)
== END 2017-06-19 10:41 | disposition home or self-care (01) | DRG 394 ==
LOC: ER 07:47 → MS 13:02 → OBSVTOIN 06-16 12:42
PROVIDERS: ADMIT Internal Medicine; ATTEND Internal Medicine
PROC: 0DB88ZX Excision of Small Intestine, Via Natural or Artificial Opening Endoscopic, Diagnostic (ICD-10-PCS; principal; 2017-06-17 10:30)
DX: K91.850 Pouchitis (principal); K51.018 Ulcerative (chronic) pancolitis with other complication; K94.19 Other complications of enterostomy; E86.0 Dehydration; Z23 Encounter for immunization
CPT/HCPCS: 36415; 44386; 74020; 74177; 80048; 80053; 81001; 82150; 82272; 83690; 85025; 85652; 86140; 87040; 87045; 87046; 87493; 88305; 89055; 90686; 99284; G0008; G0378; J2405